=== PATIENT | male | born 2000 | race Caucasian/White ===

== ENCOUNTER 2023-02-24 18:02 | Emergency (ER) | payer OTHER ==
[2023-02-24] MEDS ORDERED: Acetaminophen 325 MG TAB ONE (19:04)
[2023-02-24] MEDS ORDERED: Ibuprofen 200 MG TAB ONE (19:04)
[2023-02-24] MEDS ORDERED: Rabies Vaccine Human 2.5 UNITS VIAL ONE (19:16)
== END 2023-02-24 20:10 | disposition home or self-care (01) ==
LOC: ERS 18:02
DX: S81.851A Open bite, right lower leg, initial encounter (principal); S81.852A Open bite, left lower leg, initial encounter; W54.0XXA Bitten by dog, initial encounter; Z23 Encounter for immunization
CPT/HCPCS: 90376; 90471; 90675; 96372

== ENCOUNTER → 2023-02-27 | Day surgery (SDC) | payer OTHER ==
[~2023-02-27] MED LIST: Rabies Vaccine Human 2.5 UNITS VIAL ONE
== END ==
LOC: ER/OP 08:27
PROVIDERS: ATTEND Emergency Medicine
DX: Z23 Encounter for immunization (principal)
CPT/HCPCS: 90471; 90675

== ENCOUNTER → 2023-03-10 | Day surgery (SDC) | payer OTHER | LOC: LAB 07:23 | PROVIDERS: ATTEND Student in an Organized Health Care Education/Training Program | DX: Z23 Encounter for immunization (principal) | CPT/HCPCS: 90471; 90675 ==